=== PATIENT | female | born 1940 | race Caucasian/White ===

== ENCOUNTER → 2019-05-23 | Outpatient (CLI) | payer SELFPAY ==
[2019-05-23 18:48] LABS: BASO # 0.1 (0.0-0.2); BASO % 0.7 % (0.0-2.0); EOS # 0.2 (0.0-0.7); EOS % 2.7 % (0-4.0); GRAN # 3.8 (1.4-6.5); GRAN % 56.2 % (42.2-75.2); HEMOGLOBIN 10.1 g/dl (12.5-16.0); LYMPH # 1.8 (1.2-3.4); LYMPH % 27.3 % (20.0-51.0); MEAN CELL VOLUME 89 fl (80.0-100.0); MEAN CORPUSCULAR HEMOGLOBIN 26 pg (27.0-31.0); MEAN CORPUSCULAR HGB CONC 30 g/dl (33.0-37.0); MEAN PLATELET VOLUME 10.7 fl (7.4-10.4); MONO # 0.9 (0.1-0.6); PLATELET COUNT 285 K/mm3 (130-400); RED BLOOD COUNT 3.82 M/mm3 (4.10-5.30); REDCELL DISTRIBUTION WIDTH-CV 14.8 % (11.5-14.5)
[2019-05-23 18:53] LABS: HEMATOCRIT 34.1 % (37.0-47.0)
[2019-05-23 18:57] LABS: ALBUMIN 3.5 gm/dL (3.5-5.0); BILIRUBIN,TOTAL 0.7 mg/dL (0.0-1.0); CALCIUM 9.2 mg/dL (8.4-10.2); CREATININE, serum 0.9 (0.52-1.25); POTASSIUM 4.6 mmol/L (3.4-5.0); TOTAL PROTEIN 6.3 gm/dL (6.4-8.2)
[2019-05-23 19:27] LABS: THYROID STIMULATING HORMONE 3.03 uIU/mL (0.465-4.680)
== END ==
LOC: ZCOL.LAB 17:23
PROVIDERS: Internal Medicine
DX: Z13.228 Encounter for screening for other metabolic disorders (principal); R68.89 Other general symptoms and signs; R73.03 Prediabetes

== ENCOUNTER → 2019-08-12 | Outpatient (CLI) | payer MEDICARE ==
[2019-08-12 10:47] LABS: ALBUMIN 3.7 gm/dL (3.5-5.0); BILIRUBIN,TOTAL 0.7 mg/dL (0.0-1.0); CALCIUM 9.2 mg/dL (8.4-10.2); CREATININE, serum 1.15 (0.52-1.25); POTASSIUM 4.7 mmol/L (3.4-5.0); TOTAL PROTEIN 6.4 gm/dL (6.4-8.2)
[2019-08-12 11:09] LABS: BASO # 0.1 (0.0-0.2); BASO % 0.6 % (0.0-2.0); EOS # 0.2 (0.0-0.7); EOS % 2.8 % (0-4.0); GRAN # 4.7 (1.4-6.5); GRAN % 60.3 % (42.2-75.2); LYMPH # 1.9 (1.2-3.4); LYMPH % 24.5 % (20.0-51.0); MEAN CELL VOLUME 89 fl (80.0-100.0); MEAN CORPUSCULAR HGB CONC 31 g/dl (33.0-37.0); MONO # 0.9 (0.1-0.6); MONO % 11.5 % (1.7-9.3); PLATELET COUNT 322 K/mm3 (130-400); RED BLOOD COUNT 3.58 M/mm3 (4.10-5.30)
[2019-08-12 11:14] LABS: HEMATOCRIT 31.9 % (37.0-47.0); HEMOGLOBIN 9.9 g/dl (12.5-16.0); MEAN CORPUSCULAR HEMOGLOBIN 28 pg (27.0-31.0)
[2019-08-12 11:17] LABS: TSH w REFLEX 2.13 uIU/mL (0.465-4.680)
== END ==
LOC: ZCOL.LAB 08:31
PROVIDERS: Internal Medicine
DX: N18.3 Chronic kidney disease, stage 3 (moderate) (principal); G30.9 Alzheimer's disease, unspecified; D64.9 Anemia, unspecified

== ENCOUNTER → 2019-09-18 | Outpatient (CLI) | payer MEDICARE | LOC: BHSO 13:00 | DX: F33.41 Major depressive disorder, recurrent, in partial remission (principal) ==

== ENCOUNTER 2019-10-31 11:05 | Emergency (ER) | payer MEDICARE, OTHER ==
[~2019-10-31] VITALS: Ht 165.1 cm; Wt 63.6 kg
[2019-10-31 11:08] VITALS: TEMP 96.1
[2019-10-31] MEDS ORDERED: TYLENOL 325MG325 MG PO (11:16)
[2019-10-31] MEDS ORDERED: ALBUTEROL0.83 MG/ML IH (11:17)
[2019-10-31] MEDS ORDERED: ARICEPT10 MG PO (11:17)
[2019-10-31] MEDS ORDERED: DULCOLAX S10 MG/SUPP RC (11:18)
[2019-10-31] MEDS ORDERED: ANTI-DIARRHEAL2 MG (11:22)
[2019-10-31] MEDS ORDERED: NAMENDA 10MG TA10 MG (11:22)
[2019-10-31] MEDS ORDERED: SEROQUEL 2525 MG/TAB PO ×2 (11:23)
[2019-10-31] MEDS ORDERED: DESYREL 100MG100 MG PO (11:24)
[2019-10-31] MEDS ORDERED: ZOLOFT 100MG100 MG PO (11:25)
[2019-10-31] MEDS ORDERED: VITAMIN B100 CO1 TAB (11:25)
[2019-10-31 11:34] LABS: BASO # 0.1 (0.0-0.2); BASO % 0.6 % (0.0-2.0); EOS # 0.2 (0.0-0.7); EOS % 1.9 % (0-4.0); GRAN # 5.6 (1.4-6.5); GRAN % 70.2 % (42.2-75.2); HEMOGLOBIN 10.7 g/dl (12.5-16.0); LYMPH # 1.4 (1.2-3.4); LYMPH % 17.9 % (20.0-51.0); MEAN CELL VOLUME 91 fl (80.0-100.0); MEAN CORPUSCULAR HEMOGLOBIN 28 pg (27.0-31.0); MEAN CORPUSCULAR HGB CONC 31 g/dl (33.0-37.0); MEAN PLATELET VOLUME 9.8 fl (7.4-10.4); MONO # 0.7 (0.1-0.6); MONO % 9.1 % (1.7-9.3); PLATELET COUNT 309 K/mm3 (130-400); RED BLOOD COUNT 3.83 M/mm3 (4.10-5.30); REDCELL DISTRIBUTION WIDTH-CV 14.2 % (11.5-14.5)
[2019-10-31 11:37] LABS: HEMATOCRIT 34.9 % (37.0-47.0)
[2019-10-31 11:51] LABS: ALANINE AMINOTRANSFERASE 10 U/L (4-34); ALBUMIN 4.1 gm/dL (3.5-5.0); ALKALINE PHOSPHATASE 65 U/L (50-136); ANION GAP 8 mmol/L (7-16); AST,SGOT 19 U/L (15-37); BILIRUBIN,TOTAL 0.7 mg/dL (0.0-1.0); BLOOD UREA NITROGEN 32 mg/dL (7-17); CALCIUM 9.1 mg/dL (8.4-10.2); CARBON DIOXIDE 26 mmol/L (22-30); CHLORIDE 107 mmol/L (98-107); CREATININE, serum 1.26 (0.52-1.25); GLUCOSE 125 mg/dL (74-106); POTASSIUM 4.1 mmol/L (3.4-5.0); SODIUM 142 mmol/L (137-145)
[2019-10-31 11:52] LABS: C-REACTIVE PROTEIN 0.5 mg/dL (0.0-0.9)
[2019-10-31 12:01] LABS: TROPONIN-I < 0.012 ng/mL (0.000-0.035)
[2019-10-31 12:15] LABS: PROTHROMBIN TIME 10.8 SECONDS (9.7-12.8)
[2019-10-31 12:29] LABS: COLLECTION METHOD CLEAN CATCH
[2019-10-31 12:47] LABS: MUCOUS Present /lpf; PH 5 (5-8); URINE APPEARANCE Hazy; URINE BACTERIA Occasional /hpf; URINE BILIRUBIN Negative (NEGATIVE); URINE BLOOD Negative (NEGATIVE); URINE COLOR Yellow; URINE GLUCOSE Negative (NEGATIVE); URINE KETONE Negative (NEGATIVE); URINE LEUKOCYTE ESTERASE 2+ (NEGATIVE); URINE NITRATE Positive (NEGATIVE); URINE PROTEIN(semi-quant) 1+ (NEGATIVE); URINE UROBILINOGEN Negative (NEGATIVE)
[2019-10-31] MEDS ORDERED: OMNICEF 300MG300 MG PO (13:05)
[2019-10-31 17:32] VITALS: BP 130/65; PULSE 56
== END 2019-10-31 13:31 | disposition home or self-care (01) ==
LOC: COL.ER 11:05
PROVIDERS: Emergency Medicine
DX: R53.81 Other malaise (principal); N39.0 Urinary tract infection, site not specified; G30.9 Alzheimer's disease, unspecified; F02.80 Dementia in other diseases classified elsewhere, unspecified severity, without behavioral disturbance, psychotic disturbance, mood disturbance, and anxiety; Z90.49 Acquired absence of other specified parts of digestive tract
CPT/HCPCS: J0696; J7030

== ENCOUNTER → 2020-05-13 | Outpatient (CLI) | payer MEDICARE ==
[~2020-05-13] MED LIST: ALBUTEROL0.83 MG/ML IH; ANTI-DIARRHEAL2 MG; ARICEPT10 MG PO; DESYREL 100MG100 MG PO; DULCOLAX S10 MG/SUPP RC; NAMENDA 10MG TA10 MG; OMNICEF 300MG300 MG PO; SEROQUEL 2525 MG/TAB PO; TYLENOL 325MG325 MG PO; VITAMIN B100 CO1 TAB; ZOLOFT 100MG100 MG PO
[2020-05-13 12:29] LABS: COLLECTION METHOD CLEAN CATCH
[2020-05-13 12:53] LABS: MUCOUS Present /lpf; PH 5 (5-8); SQUAMOUS EPITHELIAL 0-2 /hpf; URINE APPEARANCE Hazy; URINE BACTERIA None Seen /hpf; URINE BILIRUBIN Negative (NEGATIVE); URINE BLOOD Negative (NEGATIVE); URINE COLOR Yellow; URINE GLUCOSE Negative (NEGATIVE); URINE KETONE Negative (NEGATIVE); URINE LEUKOCYTE ESTERASE 1+ (NEGATIVE); URINE NITRATE Positive (NEGATIVE); URINE PROTEIN(semi-quant) 1+ (NEGATIVE); URINE RBC 0-2 /hpf; URINE UROBILINOGEN Negative (NEGATIVE); URINE WBC >50 /hpf
== END ==
LOC: ZCOL.LAB 10:42
PROVIDERS: Internal Medicine
DX: N39.0 Urinary tract infection, site not specified (principal)